=== PATIENT | female | born 1935 | race Caucasian/White ===

== ENCOUNTER 2017-08-28 23:18 | Emergency (ER) | payer MEDICARE, OTHER ==
[~2017-08-28] VITALS: Ht 167.6 cm; Wt 62.6 kg
[~2017-08-28 23:18] MED LIST: ADULT LOW DOSE81 MG PO; B-121000 MC2 PO; BACTRIM DS TAB1 EACH PO; BENADRYL25 MG PO; CALCIUM + VITA1 EACH PO; CENTRUM SILVER1 EAC1 PO; COZAAR100 MG PO; DIGOX125 MCG PO; FLOVENT DISKUS50 MCG IH; GLUCOPHAGE XR500 MG PO; GLUCOSAMINE1000 MG PO; GLUCOTROL5 MG PO; INVOKANA300 MG PO; LEVOTHROID112 MCG PO; LEVOTHYROXINE88 MCG PO; LOVENOX60 MG SUB-Q; LUMIGAN2.5 M1 OU; MACUVITE WITH1 EACH PO; MAGNESIUM250 M1 PO; METFORMIN HCL500 MG PO; NORVASC5 MG PO; OCUVITE SOFTGE1 EACH PO; POTASSIUM CHLO10 MEQ PO; PREVACID30 MG PO; SIMVASTATIN10 MG PO; SIMVASTATIN5 MG PO; TRAZODONE HCL50 MG PO; VITAMIN C1000 M1 PO; WARFARIN SODIUM2 MG PO
[2017-08-28] MEDS ORDERED: ELIQUIS5 MG PO (23:39)
[2017-08-28] MEDS ORDERED: GLUCOPHAGE XR500 MG PO (23:47)
[2017-08-28] MEDS ORDERED: CARDIZEM120 MG PO (23:51)
[2017-08-29] MEDS ORDERED: COREG6.25 MG PO (17:48)
== END 2017-08-29 00:57 | disposition home or self-care (01) ==
LOC: ED 23:18
DX: S09.90XA Unspecified injury of head, initial encounter (principal); E11.9 Type 2 diabetes mellitus without complications; Z86.73 Personal history of transient ischemic attack (TIA), and cerebral infarction without residual deficits; E03.9 Hypothyroidism, unspecified; K21.9 Gastro-esophageal reflux disease without esophagitis; Z90.49 Acquired absence of other specified parts of digestive tract; Z95.0 Presence of cardiac pacemaker; Z98.890 Other specified postprocedural states; Z88.8 Allergy status to other drugs, medicaments and biological substances; Z79.899 Other long term (current) drug therapy; Z79.84 Long term (current) use of oral hypoglycemic drugs; W18.30XA Fall on same level, unspecified, initial encounter; Z79.2 Long term (current) use of antibiotics
CPT/HCPCS: 70450; 99284

== ENCOUNTER 2017-08-29 10:30 | Inpatient (IN) | payer MEDICARE, OTHER ==
[~2017-08-29] VITALS: Ht 167.6 cm; Wt 59.1 kg
[~2017-08-29 10:30] MED LIST changes: +CARDIZEM120 MG PO; +ELIQUIS5 MG PO
--- NOTE | 2017-08-29 14:10 | NUR ---
PT TO FLOOR WITH DAUGHTER IN LAW AND CARD CUTTER HELPER. PT AWAKE AND ALERT. PT DENIES PAIN OR DISCOMFORT OTHER THAN BEING COLD. PT ANSWERED MOST OF QUESTIONS HERSELF WITH MINIMAL ASSISTANCE FROM DAUGHTER. PT DENIES LIGHTHEADEDNESS ATT. VS DONE. WILL CHECK ON MED LIST FROM DR CHOUDHURY OFFICE STATED BY DAUGHTER.
--- NOTE | 2017-08-29 16:00 | NUR ---
patient resting in bed. RN in room. Patient has no needs at this time. call button in reach. Meal tray removed.
--- NOTE | 2017-08-29 16:09 | NUR ---
PT IN BED RESTING WITH EYES CLOSED. CHANGED MAINTENCE FLUIDS TO LR FROM NS PER NEW ORDER. PT DENIES CONCERNS.
--- NOTE | 2017-08-29 17:11 | NUR ---
patient sitting up in bed eating dinner. no needs at this time. call button in reach.
--- NOTE | 2017-08-29 17:47 | NUR ---
PT ATE ALL OF DINNER TONIGHT. UP TO BEDSIDE COMMODE WITH NO REPORTS OF LIGHTHEADEDNESS. BOOSTED BACK IN BED. PT DENIES CONCERNS.
[2017-08-29] MEDS ORDERED: COREG6.25 MG PO (17:48)
--- NOTE | 2017-08-29 18:15 | NUR ---
patient resting in bed with call button in reach. side rails up. no other needs at this time.
--- NOTE | 2017-08-29 18:17 | NUR ---
MED REC COMPLETE WITH [facility] REFILL HISTORY AND PATIENT INTERVIEW BY KOLTON DOYLE, ALEXIS, AND MYSELF.
--- NOTE | 2017-08-29 19:54 | NUR ---
PATIENT LAYING IN BED WATCHING TV. WHITEBOARD UPDATED, ROOM TIDIED, WATER REFILLED. REMINDED PATIENT TO CALL IF SHE NEEDS ANYTHING.
--- NOTE | 2017-08-29 20:00 | NUR ---
RECEIVED REPORT AT 1900. FOUND PT IN BED WITH FAMILY AT HER BEDSIDE. PT SEEMED IN GOOD SPIRITS.
--- NOTE | 2017-08-29 22:00 | NUR ---
ORTHOSTATIC V/S WERE WDL. HR IS IRREGULAR AT TIMES. ALL LOBES ARE CLEAR, NO PERIPHERAL EDEMA NOTED, PT DENEIES DIZZINESS, PAIN AND N/V. BG WAS 234, PT RECEIVED 5 UNITS OF NOVOLOG INSULINE. PT HAS NOT URINATED BETWEEN [id number]. WILL KEEP MONITORING.
--- NOTE | 2017-08-29 23:15 | NUR ---
PT JUST VOIDED 325ML.
--- NOTE | 2017-08-29 23:58 | NUR ---
PT IS SLEEPING AT THIS TIME.
--- NOTE | 2017-08-30 | NUR ---
LEAD CAME OFF OF PATIENT'S TELE. WENT IN AND RE-ATTACHED IT. PATIENT DOING WELL. WENT BACK TO SLEEP AFTER
--- NOTE | 2017-08-30 02:09 | NUR ---
ORTHOSTATIC BP WAS 99/41, HR 60-63. PT ALSO USED BSC AND VOIDED 700ML. PT IS BACK IN BED
--- NOTE | 2017-08-30 02:20 | NUR ---
MD MELARA WAS CALLED. I WAS NOT ABLE TO REACH HIM.
--- NOTE | 2017-08-30 04:10 | NUR ---
PT IS SLEEPING
--- NOTE | 2017-08-30 05:34 | NUR ---
PT SLEPT MOST OF THE NIGHT. PT DOES WELL PIVOTING TO BEDSIDE COMODE. PT DOES GET DIZZI WHEN STANDING UP ORTHOSTATIC BP AT 0200 WAS 99/41. MD MELARA WAS NOTIFIED. PT ALSO HAS SLURRED SPEECH WITH EACH TIME SHE HAS TO GET UP OR WHEN SHE WAKES UP. ALL LOBES ARE CLEAR, NO PERIPHERAL EDEMA NOTED. NO OTHER ISSUES NOTED SO FAR.
--- NOTE | 2017-08-30 07:26 | NUR ---
RECIEVED REPORT FROM DAY SHIFT NURSE. PT SLEEPING. IVF INFUSING W/O DIFFICULTY. CALL NARVAEZ IN REACH.
--- NOTE | 2017-08-30 08:44 | NUR ---
BLOOD SUGAR OBTAINED. [id number] AT BEDSIDE. MEAL TRAY SERVED, INSULIN ADMINISTERED. IVF INFUSING. PT UP TO BSC WITH ASSISTANCE. BACK IN BED. BOOSTED UP IN BED FOR BREAKFAST. CALL NARVAEZ IN REACH.
--- NOTE | 2017-08-30 09:20 | NUR ---
PT IN DOSS WITH PHYSICAL THERAPY.
--- NOTE | 2017-08-30 10:23 | NUR ---
PT RESTING IN BED. CALL NARVAEZ IN REACH. CAREGIVER AT BEDSIDE.
--- NOTE | 2017-08-30 12:35 | EKG ---
[facility] [address] [place] [address] Signed Atrial-paced rhythm with prolonged AV conduction Minimal voltage criteria for LVH, may be normal variant Abnormal ECG When compared with ECG of 04-NOV-2016 10:32, Electronic atrial pacemaker has replaced Sinus rhythm Confirmed by RODRICK MELARA MD ([id number]) on 08/30/2017 12:35:37 PM Electronically Signed By: RODRICK MELARA MD 08/30/17 1235 PATIENT NAME: EMELYN NOLEN Electrocardiogram DATE OF : 33 PHYSICIAN: RODRICK MELARA MD REPORT #: [id number] REPORT IS CONFIDENTIAL AND NOT TO BE RELEASED WITHOUT AUTHORIZATION
--- NOTE | 2017-08-30 13:21 | NUR ---
PT RESTING IN BED. DENIES NEEDS AT THIS TIME. CALL NARVAEZ IN REACH.
--- NOTE | 2017-08-30 15:57 | NUR ---
PT SLEEPING ON L SIDE. IVF INFUSING W/O DIFFICULTY. CALL NARVAEZ IN REACH.
--- NOTE | 2017-08-30 16:30 | NUR ---
PT UP TO BATHROOM WITH ASSISTANCE. PT DENIES DIZZINESS/LIGHTHEADEDNESS. PT BACK TO BED. FAMILY IN ROOM. DENIES FURTHER NEEDS. CALL NARVAEZ IN REACH.
--- NOTE | 2017-08-30 18:24 | NUR ---
PT UP IN CHAIR HAVING DINNER. BLOOD SUGAR OBTAINED, INSULIN ADMINISTERED. FAMILY IN ROOM ASKING AGAIN WHAT THE PLAN IS FOR THE REST OF HER STAY. I TOLD HIM AGAIN SHE IS WORKING WITH PHYSICAL THERAPY, STARTED ON DIGOXIN, MONITORING ORTHOSTATICS. WILL OBTAIN ORTHOSTATICS WHEN PT IS FINISHED EATING. CALL BRICE IN REACH.
--- NOTE | 2017-08-30 18:53 | NUR ---
OBTAINED ORTHOSTATIC VS.
--- NOTE | 2017-08-30 19:00 | NUR ---
WAS ABLE TO READ MD'S NOTE AND GIVE SON MORE INFORMATION TO WHAT THE PLAN IS. WAIT FOR [place] TO CLEAR SYSTEM, CHECK ORTHOS, IF NO IMPROVEMENT TRY ORTHOSTATIC MEDICATIONS. SON HAPPY WITH INFORMATION GIVEN.
--- NOTE | 2017-08-30 19:10 | NUR ---
PATIENT REPORT RECIEVED AT BEDSIDE. PATIENT RESTING IN BED. DENIES NEEDS AT THIS TIME. CALL LIGHT IN REACH.
--- NOTE | 2017-08-30 20:50 | NUR ---
PATIENT ASSESSMENT COMPLETED. PATIENT IS AAOX3. SPEECH IS APPROPRIATE AND NOT SLURRED. PATIENT DENIES PAIN, NAUSEA, OR DIZZINESS. PATIENT WAS UP TO BSC W/1PA. PATIENT DENIES DIZZINESS WITH TRANSFER. PATIENT IS SLIGHTLY WEAK AND REPORTS THAT SHE IS VERY TIRED AND SORE FROM THE HOSPITAL BED. LUNG SOUNDS CLEAR. BOWEL SOUNDS ACTIVE. ABD SOFT, ROUND, NONTENDER. IVF INFUSING, SITE WNL. EVENING MEDS GIVEN PER ORDERS. PATIENT ASSISTED BACK TO BED AND POSITIONED FOR COMFORT. WARM BLANKET PROVIDED. BED ALARM ON. CALL LIGHT IN REACH.
--- NOTE | 2017-08-30 22:30 | NUR ---
PATIENT RESTING IN BED. EYES CLOSED. RR 14. CALL LIGHT IN REACH. BED ALARM ON.
--- NOTE | 2017-08-30 22:50 | NUR ---
PATIENT REQUESTED ASSISTANCE WITH TOILETING. BIT TAPPER ASSISTED PATIENT UP TO BSC. PATIENT BACK TO BED. BED ALARM ON. CALL LIGHT IN REACH.
--- NOTE | 2017-08-31 00:18 | NUR ---
IVF STOPPED PER ORDER. PATIENT RESTING IN BED. EYES CLOSED. RR 16. BED ALARM ON. CALL LIGHT IN REACH.
--- NOTE | 2017-08-31 02:24 | NUR ---
PATIENT RESTING. EYES CLOSED. RR 16. CALL LIGHT IN REACH.
--- NOTE | 2017-08-31 04:12 | NUR ---
PATIENT RESTING IN BED. EYES CLOSED. RR 16. CALL LIGHT IN REACH. BED ALARM ON.
--- NOTE | 2017-08-31 05:15 | NUR ---
PATIENT RESTED WELL THROGUHOUT SHIFT. AAOX3. USES CALL LIGHT APPROPRIATE. SBA TO BSC. GENERALIZED WEAKNESS. ACTIVITY INTOLERANT. OUTPUT QS. IV SL. DENIES DIZZINESS, NAUSEA, AND PAIN. PACEMAKER. GLUCOSE CHECKS. ORTHOSTATIC BP AT 0600 & 1800. ADA DIET.
--- NOTE | 2017-08-31 06:34 | NUR ---
ORTHOSTATIC BP TAKEN AND RECORDED. MORNING MEDS GIVEN PER ORDERS. PATIENT IS AAOX3. PATIENT UP TO [facility] [place] 1[place]W. PATIENT BECAME VERY TIRED AND WAS UNABLE TO ANSER QUESTIONS AND SPEECH WAS SLURRED. HELPED PATIENT BACK TO BED, WITHIN 5MINS PATIENT WAS ABLE TO ANSWER QUESTIONS WITHOUT SLURRED SPEECH. PATIENT EXPLAINED THAT SHE WAS JUST VERY TIRED WHEN SHE WAS STANDING BUT DENIES DIZZINESS. PATIENT IS LOOKING FORWARD TO BREAKFAST. RESTING IN BED AND WATCHING TV. NO FURTHER NEEDS AT THIS TIME. CALL LIGHT IN REACH.
--- NOTE | 2017-08-31 06:37 | NUR ---
PLACED CALL TO MD IN REGARDS TO PATIENTS ORTHOSTATIC VITALS. NO NEW ORDERS AT THIS TIME.
--- NOTE | 2017-08-31 08:00 | NUR ---
PATIENT SITTING UP EATING BREAKFAST, CBG 147. ADMINISTERED 1 UNIT OF INSULIN. PATIENT HAS NO COMPLAINTS OF PAIN, LUNG SOUNDS CLEAR. FULL BODY ASSESMENT DONE. DR. MELARA VERBALIZED NEW ORDERS TO COME, NOT TO DO ANOTHER SET OF ORTHOS AT THIS TIME.
--- NOTE | 2017-08-31 10:31 | NUR ---
NEW MEDICAITON ADMINISTERED FOR ORTHOS, MIDODRINE HALF OF TAB. INSTRUCTED PATIENT THAT ORTHOS WILL BE REPEATED IN 3 HOURS. PATIENT VERBALIZED UNDERSTANDING.
--- NOTE | 2017-08-31 14:00 | NUR ---
PATIENT SITTING UP IN RECLINER, NO COMPLAINTS OF DIZZINESS. NOW AMBULATING IN TO BATHROOM WITH STBY AND WALKER. PATIENT STATES " I AM FEELING WAY BETTER". OT NOW IN ROOM TO SEE PATIENT.
--- NOTE | 2017-08-31 16:45 | NUR ---
PHYSICAL THERAPY AMBULATED PATIENT IN DOSS WITH WHEELCHAIR BEHIND, ONE LAP. NO COMPLAINTS OF DIZZINESS, OR COGNITIVE CHANGE. BLOOD PRESSURE STABLE THROUGHOUT EXERTION. PATIENT NOW IN SHOWER.
--- NOTE | 2017-08-31 17:30 | NUR ---
ORTHOS DONE, POSITIVE RESULTS. SEE ORTHOS CHARTED. NOTIFIED DR. MELARA, DISCUSSED MEDICATION POSSIBLY WEARING OFF TOO SOON, DR. CORTÉS INCREASED PROAMATINE TO 5MG AND TO ADMINISTERED 2.5 MG NOW. DISCUSSED POC WITH PATIENT, WHO VERBALIZED UNDERSTANDING. NOW SITTING UP IN RECLINER EATING DINNER. CBG STABLE.
--- NOTE | 2017-08-31 18:35 | NUR ---
PATIENT NEW MEDICAITON FOR ORTHOSTATIC HYPOTENSION, ADMINISTERED PROAMATINE. STARTING DOSE 2.5MG, NOW INCREASED TO 5MG TID WITH ORTHOS TO BE DONE 2 HOURS POST ADMINISTRATION OF MEDICATION. AFTER SECOND DOSE OF MEDICAITON AT 15OO PATIENT UP WITH PHYISCAL THERAPY, AMBULATING LAP IN DOSS AND SHOWERED WITHOUT SYMPTOMS OF DIZZINESS OR CHANGE IN COGNITION. AT 1700 PATIENT ORTHOSTATICS POSITIVE AND AFTER STANDING FOR 5 MINUTES BP 82/40 P61 PATIENT STATED " I FEEL LIKE I NEED TO SIT DOWN." AT THAT TIME PROAMATINE WAS INCREASED TO 5MG PO. CBGS STABLE, AND PATIENT EATING WELL.
--- NOTE | 2017-08-31 19:10 | NUR ---
SHIFT REPORT RECIEVED. PATIENT RESTING IN BED WATCHING TV. DENIES NEEDS AT THIS TIME. CALL LIGHT IN REACH.
--- NOTE | 2017-08-31 20:58 | NUR ---
EVENING MEDS GIVEN PER ORDERS. PATIENT ASSESSMENT COMPLETED AND DOCUMENTED. PATIENT AAOX3. LUNG SOUND CLEAR. ABD SOFT, ROUND, NONTENDER. PATIENT DENIES NAUSEA. PATIENT IS STILL SLGIHTLY WEAK WHEN MOVING IN BED. ABLE TO AMBULATE WITH 1PA W/FWW. PATIENT DENIES PAIN OR DIZZINESS. CALL LIGHT IN REACH. NO FURTHER REQUEST.
--- NOTE | 2017-08-31 23:09 | NUR ---
PATIENTS ORTHOSTATIC VITALS TAKEN AND RECORDED 2 MINUTES AFTER MEDICATION WAS GIVEN PER MD ORDER. PATIENT TOLERATED ACTIVITY WELL. NO SLURRED SPEACH NOTED. PATIENT DID HOWEVER COMPLAIN OF BEING LIGHT HEADED AROUND STANDING FOR 2 MINUTES. PATIENT HAD NO NAUSEA OR DIZZINESS NOTED. PATIENT IS NOW IN BED RESTING. PATIENT GIVEN WARM BLANKET PER REQUEST. PATIENT DENIES ANY FURTHER NEEDS. CALL LIGHT IN REACH.
--- NOTE | 2017-09-01 00:59 | NUR ---
ASSISTED PATIENT TO THE BSC. PATIENT DID WELL PIVOT TRANSFERRING. PATIENT DENIES BEING DIZZY OR FEELING LIGHT HEADED. PATIENT IS NOW BACK IN BED RESTING. PATIENT DENIES ANY FURTHER NEEDS AT THIS TIME. CALL LIGHT IN REACH AND BED ALARM IS ON.
--- NOTE | 2017-09-01 02:41 | NUR ---
PATIENT RESTING IN BED. EYES CLOSED. RR14. CALL LIGHT IN REACH.
--- NOTE | 2017-09-01 03:59 | NUR ---
PATIENT ASSISTED TO THE BSC. PATIENT WAS ABLE TO VOID. PATIENT TOLERATED ACTIVITY WELL. PATIENT IS NOW BACK IN BED RESTING. PATIENT DENIES ANY NEEDS AT THIS TIME. CALL LIGHT IN REACH AND BED ALARM ON.
--- NOTE | 2017-09-01 04:40 | NUR ---
PATIENT RESTED WELL THROUGHOUT THE SHIFT. USES CALL LIGHT APPROPRIATELY. AAOX3. NEW MEDS FOR ORTHOSTATIC HYPOTENSION, ORTHO BP TAKEN 2 HOUR AFTER. ADA DIET, TOLERATING WELL. GLUCOSE CHECKS. 1PA W/FWW. DENIEA PAIN, NAUSEA, AND DIZZINESS.
--- NOTE | 2017-09-01 06:27 | NUR ---
MORNING MEDS GIVEN PER ORDER. PATIENT RESTING IN BED. PATIENT STATES THAT SHE IS FEELING "PRETTY GOOD". PATIENT DENIES PAIN OR DIZZINESS. DENIES NEEDS AT THIS TIME. CALL LIGHT IN REACH.
--- NOTE | 2017-09-01 06:48 | NUR ---
PATIENTS IV NO LOONGER PATENT. NE IV STARTED IN RIGHT WRIST. PATIENT TOLERATED IV START WELL. PATIENT DENIES ANY PAIN. PATIENT DENIES ANY NEEDS AT THIS TIME. CALL LIGHT IN REACH.
--- NOTE | 2017-09-01 08:00 | NUR ---
PATIENT UP TO BEDSIDE. EATING BREAKFAST. TOLERATING BREAKFAST WELL. NO DIZZINESS OR PAIN AT THIS TIME. PATIENT STATES " I AM FEELING MUCH BETTER TODAY" FULL BODY ASSESMENT DONE.
--- NOTE | 2017-09-01 10:30 | NUR ---
ROUNDED WITH DR. MELARA, ORTHOS DONE WITH MANUAL BLOOD PRESSURE CUFFS. NOTE CHANGE DECREASE IN BLOOD PRESSURES WHEN TRANSITIONING FROM SUPINE TO STANDING. CONTINUE WITH MEDICATION REGIME. PATIENT NOW AMBULATING INTO BATHROOM WITH STBY NO COMPLAINTS OF DIZZINESS.
--- NOTE | 2017-09-01 14:58 | NUR ---
PATIENT UP WITH PHYSICAL THERAPY AMBULATED IN HALLS FOR 6 MINUTES AND MADE SEVERAL LAPS AROUND THE HALLS, NO REPORTS OF FEELING DIZZY. PATIENT STATED " I THINK I COULD GO HOME NOW". PHYISCAL THERAPY REPORTED PLAN TO EVALUATE AGAIN TOMORROW.
--- NOTE | 2017-09-01 17:57 | NUR ---
PERFORMED ORHTO VS POST 2 HOURS OF ADMINISTRATION OF PROAMATINE, SEE VS. WHILE PATIENT WAS STANDING FOR 5MIN PORTION OF ORTHOS, NOTED PULSE INCREASE TO P180 WITH A SUDDEN DROP TO P60 AND A SIGNIFICANT DECREASE IN BLOOD PRESSURE. AT THAT TIME PATIENT STATED "WOW I AM FEELING DIZZY". NOTIFIED DR. DUFF, NO NEW ORDERS AT THIS TIME.
--- NOTE | 2017-09-01 18:10 | NUR ---
PATIENT ACTIVITY LEVEL HAS INCREASED TODAY, PATIENT UP AMBULATING IN HALLS FOR RECORDED 6 MINUTES WITH PHYSICAL THERAPY, AND BACK AND FORTH TO THE BATHROOM. ORTHOS CONTINUE TO POSITIVE, WITH LESS OF A SIGNIFICANT DROP IN BLOOD PRESSURE. PATIENT HAD ONE EPISODE OF DIZZINESS TODAY AFTER ORTHOS THIS EVENING AT 1700, P OF 180 THAT DECREASED RAPIDLY TO 60 WHILE THIS NURSE WAS AUSCULTATING CHEST. REPORTED FINDINGS TO DR. LUCIA, NO NEW ORDERS. PLAN TO DISCHARGE TOMORROW.
--- NOTE | 2017-09-01 19:15 | NUR ---
SHIFT REPORT RECIEVED. PATIENT IN BED RESTING. DENIES NEEDS AT THIS TIME. CALL LIGHT IN REACH.
--- NOTE | 2017-09-01 20:23 | NUR ---
ASSESSMENT COMPLETED AND DOCUMENTED. EVENING MEDS GIVEN PER ORDER. PATIENT IS AAOX3. DENIES PAIN, NAUSEA, OR DIZZINESS. LUNG ARE CLEAR. ABD IS SOFT, NONTENDER, AND BOWEL SOUNDS ACTIVE. PATIENT REPORTS THAT SHE HAS NOT HAD A BOWEL MOVEMENT SINCE SHE WAS ADMITTED BUT THAT IS COMMON FOR HER TO GO 6-8 DAYS WITHOUT. DENIES FEELING BLOATED OR CONSTIPATED. PATIENT IS ABLE TO AMBULATE WITH A FWW AND SBA. IV IS SL, SITE WNL. PATIENT DENIES NEEDS AT THIS TIME. CALL LIGHT IN REACH.
--- NOTE | 2017-09-01 21:47 | NUR ---
PATIENT ASSISTED TO THE RESTROOM. PATIENT IS A SBA W/FWW. PATIENT IS STEADY ON HER FEET. PATIENT TOLERATED AMBUALTION WELL. PATIENT HAD NO COOMPLAINTS OF DIZZINESS, LIGHTHEADEDNESS, OR NAUSEA. PATIENT WAS ABLE TO ELIMIATE. PATIENT IS ACTIVLEY PASSING GAS. PATIENT IS NOW BACK IN BED RESTING. PATIENT DENIES ANY FURTHER NEEDS AT THIS TIME. CALL LIGHT IN REACH.
--- NOTE | 2017-09-01 22:05 | NUR ---
PATIENT COMPLAINS OF NOT BEING ABLE TO SLEEP. OFFERED PATIENT A WHITE NOISE MACHINE, SHE DECLINED. SHE TAKES A SLEEPING AIDE AT HOME AND REQUEST THE MD BE CONTACTED. MD CONTACTED VIA PHONE, NEW ORDERS RECIEVED. VERIFIED USING READ BACK METHOD. BUZZ INPUT. SLEEP AIDE GIVEN PER ORDERS.
--- NOTE | 2017-09-02 03:05 | NUR ---
PATIENT RESTING IN BED. EYES CLOSED. RR 16. CALL LIGHT IN REACH.
--- NOTE | 2017-09-02 04:58 | NUR ---
PATIENT RESTED WELL THROUGHOUT SHIFT. DENIES PAIN, NAUSEA, OR DIZZINESS. SBA W/FWW. PATIENT HAS NOT HAD A BM. DENIES ANY ADB DISCOMFORT. TOLERATING ADA DIET.
--- NOTE | 2017-09-02 05:51 | NUR ---
PATIENT RESTING, EYES CLOSED, RR 16. CALL LIGHT IN REACH.
--- NOTE | 2017-09-02 06:31 | NUR ---
MORNING MEDS GIVEN PER ORDER. PATIENT RESTING IN BED. DENIES PAIN OR DIZZINESS. NO NEEDS AT THIS TIME. CALL LIGHT IN REACH.
--- NOTE | 2017-09-02 10:24 | NUR ---
PATIENT CONTINUES TO NOT BE ABLE TO HAVE BM, PROVIDED PATIENT WITH DULCOLAX PO AND MIRALAX. PATIENT STATES " SOMETIMES IT TAKES 8 DAYS BEFORE I GO". PATIENT UP AMBULATING, NO COMPLAINTS OF DIZZINESS. APPEARS STEADY ON FEET. STATES " I AM READY TO GO HOME".
--- NOTE | 2017-09-02 13:00 | NUR ---
PATIENT VS STABLE. NO COMPLAINTS OF DIZZINESS. PATIENT STATES " I AM FEELING SO MUCH BETTER". DR. SAMAYOA ROUNDED, ADDRESSED QUESTIONS AND CONCERNS PATIENT HAD.
--- NOTE | 2017-09-02 17:09 | NUR ---
PATIENT HAD SMALL BOWEL MOVEMENT, STATES FORMED SOFT STOOL. STATES "I FEEL LIKE MORE COULD COME." PROVIDED PATIENT WITH EDUCATION ON NEW MEDICATION AND AUTONOMIC NEUROPATHY. PATIENT'S DAUGHTER LIZZETTE AT BEDSIDE.
--- NOTE | 2017-09-02 19:30 | NUR ---
RECEIVED REPORT FROM RN. PATIENT DENIES NEEDS AT THIS TIME.
--- NOTE | 2017-09-02 21:05 | NUR ---
EVENING MEDICATIONS GIVEN, ASSESSMENT DONE, PATIENT REPOSITIONED. SHE IS RESTING COMFORTABLY IN BED AND DENIES NEEDS AT THIS TIME. CALL LIGHT WITHIN REACH.
--- NOTE | 2017-09-03 01:06 | NUR ---
[facility] NOW RESTING COMFORTABLY IN BED, CALL LIGHT WITHIN REACH, DENIES NEEDS AT THIS TIME.
--- NOTE | 2017-09-03 04:52 | NUR ---
PATIENT RESTING IN BED COMFORTABLY. BREATHING IS EVEN AND UNLABORED. CALL LIGHT WITHIN REACH.
--- NOTE | 2017-09-03 05:52 | NUR ---
PATIENT'S NIGHT WAS UNEVENTFUL. SHE HAS BEEN RESTING COMFORTABLY THROUGHOUT SHIFT. NO COMPLAINTS OF PAIN, VSS. NO ACUTE CHANGES FROM BEGINNING OF SHIFT ASSESSMENT.
--- NOTE | 2017-09-03 07:20 | NUR ---
RECIEVED BEDSIDE REPORT FROM SERGIO. PT RESTING QUIETLY.
--- NOTE | 2017-09-03 07:30 | NUR ---
ONE PERSON ASSIST WITH WALKER TO CHAIR. HANDS AND FACE WASHED. FEET ELEVATED. CALL BUTTON IN REACH. BREAKFAST SET UP. NO OTHER NEEDS AT THIS TIME.
--- NOTE | 2017-09-03 08:04 | NUR ---
PT SITTING UP IN RECLINER, EATING BREAKFAST. MEDICAL STUDENT IN ROOM WITH PT ASSESSING HER. PT RECIEVED AM MEDICATIONS. 1 UNIT NOVOLOG GIVEN FOR BG OF 174.
--- NOTE | 2017-09-03 09:33 | NUR ---
PATIENT RESTING IN BED WITH DAUGHTER IN ROOM. ORAL CARE DONE. CALL BUTTON IN REACH. FRESH WATER GIVEN. PATIENT STATES THAT OT WILL ASSIST WITH SHOWER. NO OTHER NEEDS AT THIS TIME.
[2017-09-03] MEDS ORDERED: MIDODRINE HCL5 MG PO (09:40)
--- NOTE | 2017-09-03 10:09 | NUR ---
PATIENT GIVEN MORNING MEDICATIONS. PATIENT IS ORDERING LUNCH, DAUGHTER IS IN ROOM. PATIENT RESTING IN BED, DENIES OTHER NEEDS.
--- NOTE | 2017-09-03 10:15 | NUR ---
RIGHT HAND IV FLUSHED, NOTABLE REDNESS ABOVE IV SITE, PATIENT INDICATES SOME DISCOMFORT. IV D/C'D PER DR. MELENDEZ, PATIENT TO D/C AFTER O.T. TODAY.
--- NOTE | 2017-09-03 10:48 | NUR ---
PT SITTING UP ON BED, WORKING WITH OCCUPATIONAL THERAPIST. DENIES NEEDS.
--- NOTE | 2017-09-03 11:00 | NUR ---
OT IN WITH PATIENT TO SHOWER.
--- NOTE | 2017-09-03 11:25 | NUR ---
PATIENT AMBULATING HALLWAY WITH PT.
--- NOTE | 2017-09-03 12:00 | NUR ---
SPOKE WITH PATIENT AND DAUGHTER IN ROOM. DAUGHTER WILL BE STAYING WITH PATIENT UNTIL SHE IS DOING WELL ENOUGH ALONE. DISCUSSED HOME HEALTH ORDERS. THEY BOTH STATE UNDERSTANDING.
--- NOTE | 2017-09-03 12:21 | NUR ---
GAVE PT AND PT'S DAUGHTER LIZZETTE DISCHARGE INFORMATION AND EDUCATION. [place], PHARMACIST IN GIVING EDUCATION TO PT AND PT'S DAUGHTER EDUCATION REGARDING MEDICATIONS. EZ, DAYTIME BABYSITTER TO SEE PT AND PT'S DAUGHTER REGARDING PLANS FOR HOME HEALTH THERAPY.
--- NOTE | 2017-09-03 13:53 | NUR ---
HOME HEALTH ORDER/FACE TO FACE/CLINICALS DELIVERED BY HAND TO [facility] DEPARTMENT.
== END 2017-09-03 12:50 | disposition home or self-care (01) | DRG 312 ==
LOC: ED 10:30 → MS 10:33
PROVIDERS: ADMIT Internal Medicine
DX: I95.1 Orthostatic hypotension (principal); T65.891A Toxic effect of other specified substances, accidental (unintentional), initial encounter; E11.43 Type 2 diabetes mellitus with diabetic autonomic (poly)neuropathy; W19.XXXA Unspecified fall, initial encounter; I10 Essential (primary) hypertension; I48.0 Paroxysmal atrial fibrillation; Z79.01 Long term (current) use of anticoagulants; E78.5 Hyperlipidemia, unspecified; G47.00 Insomnia, unspecified; H40.9 Unspecified glaucoma; Z86.73 Personal history of transient ischemic attack (TIA), and cerebral infarction without residual deficits; Z95.0 Presence of cardiac pacemaker
CPT/HCPCS: 36415; 70450; 71010; 80048; 80053; 80162; 81001; 82533; 84439; 84443; 84484; 85025; 93005; 93010; 93306; 94760; 97116; 97162; 97165; 97535; J7040; J7120

== ENCOUNTER 2017-09-22 12:30 | Emergency (ER) | payer MEDICARE, OTHER ==
[~2017-09-22] VITALS: Ht 167.6 cm; Wt 59.0 kg
[~2017-09-22 12:30] MED LIST changes: +COREG6.25 MG PO; +MIDODRINE HCL5 MG PO
--- NOTE | 2017-09-24 22:27 | EKG ---
[facility] [address] [place] [address] Signed Sinus rhythm Nonspecific ST and T wave abnormality Abnormal ECG When compared with ECG of 29-AUG-2017 11:34, Junctional rhythm has replaced Electronic atrial pacemaker Confirmed by RODRICK MELARA MD ([id number]) on 09/24/2017 10:27:38 PM Electronically Signed By: RODRICK MELARA MD 09/24/17 2227 PATIENT NAME: CALLUMEMELYN LAMONT Electrocardiogram DATE OF : 33 PHYSICIAN: RODRICK MELARA MD REPORT #: [id number] REPORT IS CONFIDENTIAL AND NOT TO BE RELEASED WITHOUT AUTHORIZATION
== END 2017-09-22 17:11 | disposition short-term general hospital (02) ==
LOC: ED 12:30
PROC: 0T2BX0Z Change Drainage Device in Bladder, External Approach (ICD-10-PCS; principal; 2017-09-22)
DX: R56.9 Unspecified convulsions (principal); G93.40 Encephalopathy, unspecified; E11.9 Type 2 diabetes mellitus without complications; E03.9 Hypothyroidism, unspecified; I10 Essential (primary) hypertension; K21.9 Gastro-esophageal reflux disease without esophagitis; Z86.73 Personal history of transient ischemic attack (TIA), and cerebral infarction without residual deficits; Z90.49 Acquired absence of other specified parts of digestive tract; Z95.0 Presence of cardiac pacemaker; Z88.1 Allergy status to other antibiotic agents; Z88.8 Allergy status to other drugs, medicaments and biological substances; Z79.899 Other long term (current) drug therapy; Z79.84 Long term (current) use of oral hypoglycemic drugs
CPT/HCPCS: 51702; 70450; 80053; 81001; 85025; 85610; 93005; 93010; 96365; 96375; 96376; 99285; J0360; J1953; J2060